=== PATIENT | female | born 1970 | race Two or more races ===

== ENCOUNTER 2024-07-12 08:13 | Inpatient (IN) | payer BC ==
[~2024-07-12] VITALS: Ht 167.6 cm; Wt 100.0 kg
[~2024-07-12 08:13] MED LIST: ATEN50TA PO; FENO145T27 OR; HYDR25TA4 PO; LEVO25TA6 PO; MELO15TA29 PO; TIRZ5INJ2 SC; VENL37.588 PO
[2024-07-12] MEDS ORDERED: MEPERIDINE HCL (25 MG/ML) 1ML VIAL ONE (08:44)
[2024-07-12] MEDS ORDERED: NEOSTIGMINE 1 MG/ML INJ (10mg/10ML VIAL) ONE (08:44)
[2024-07-12] MEDS ORDERED: ONDANSETRON HCL 4 MG/2 ML VIAL ONE (08:44)
[2024-07-12] MEDS ORDERED: PROPOFOL 10 MG/ML 20 ML IV ONE ×2 (08:44→12:37)
[2024-07-12] MEDS ORDERED: fentaNYL CITRATE 5 ML ONE (08:44)
[2024-07-12] MEDS ORDERED: KETAMINE 50mg/ML 1ml syringe ONE (08:44)
[2024-07-12] MEDS ORDERED: MIDAZOLAM HCL 2MG/2ML 2ml VIAL (1mg/ml) ONE (08:44)
[2024-07-12] MEDS ORDERED: LIDOCAINE 1% INJ PF 5ML AMP ONE (08:44)
[2024-07-12] MEDS ORDERED: GLYCOPYRROLATE 0.2 MG/ML 1ML VIAL ONE (08:44)
[2024-07-12] MEDS ORDERED: SODIUM CHLORIDE LOCK 50 ML ONE (08:44)
[2024-07-12] MEDS ORDERED: LIDOCAINE 2% TOPICAL JELLY 5 ML URJT TOP ONE (08:44)
[2024-07-12] MEDS ORDERED: ROCURONIUM 10MG/ML 10ML VIAL IV ONE (08:44)
[2024-07-12] MEDS ORDERED: DexAMETHasone SOD PHOS 10MG/1ML VIAL INJ ONE (08:44)
[2024-07-12] MEDS ORDERED: fentaNYL CITRATE 100 MCG/2 ML VL ONE (08:44)
[2024-07-12] MEDS ORDERED: ceFAZolin 2 GM/D5W100ml 100 ML IV ONE (08:45)
--- NOTE | 2024-07-12 10:55 | DVHHP2 ---
"Admitting Diagnosis: lumbar spinal stenosis with severe neurogenic claudication History of Present Illness Home Meds Reported Medications Tirzepatide (Zepbound) 5 Mg/0.5 Ml Inj, 5 MG SC QWEEKLY, INJ 07/08/24 Meloxicam (Meloxicam) 15 Mg Tab, 15 MG PO, TAB 07/08/24 Hydrochlorothiazide (Hydrochlorothiazide) 25 Mg Tab, 25 MG PO DAILY for 30 Days, MG 07/08/24 Fenofibrate (FENOFIBRATE) 145 Mg Tab, 145 MG OR DAILY, TAB 07/08/24 Venlafaxine Hcl (Venlafaxine Hcl Er) 37.5 Mg Cap, 37.5 MG PO QPM, CAP 07/08/24 Atenolol (Atenolol) 50 Mg Tab, 50 MG PO DAILY for 30 Days, MG 07/08/24 Levothyroxine Sodium (Levothyroxine Sodium) 25 Mcg Tab, 25 MCG PO QAM, MCG 07/08/24 Timing/Duration of Back Pain: Getting worse Quality of Back Pain: Aching, Burning Back Pain Location: Lumbar spine Back Pain Radiation: Buttocks, Thigh area, Lower legs Method of Injury/Prior Factors: Unknown Review of Systems Constitutional: No symptom reported Ears, Nose, & Throat: No symptom reported Eyes: No symptom reported Pulmonary/Respiratory: No symptom reported Cardiovascular: No symptom reported Gastrointestinal: No symptom reported Genitourinary: No symptom reported Musculoskeletal: Back pain, Leg pain, Muscle stiffness, Muscle atrophy Skin: No symptom reported Psychiatric: No symptom reported Endocrine: No symptom reported Hemotologic/Lymphatic: No symptom reported H&P Exam Vital Signs Vital Signs Date Time Temp Pulse Resp B/P (MAP) Pulse Ox O2 Delivery O2 Flow Rate FiO2 07/12/24 08:20 97.2 58 16 124/77 (93) 98 97.2 General Appeara: Well developed, Well nourished, Normal Appearance Head Exam: Normal inspection Neck Exam: Normal inspection, Non-tender, Normal alignment Eye Exam: bilateral eye Normal inspection, bilateral eye PERRL, bilateral eye EOMI Ear Exam: bilateral ear Auricle normal, bilateral ear Canal normal, bilateral ear TM normal Nasal Exam: Normal inspection Mouth: Normal Inspection Pulmonary/Respiratory: Normal inspection, Normal breath sounds, Chest non- tender, Lungs clear Cardiovascular/Chest: Normal inspection, Regular rate, Normal Rhythm Abdominal Exam: Normal bowel sounds, Soft, No tenderness, No hepatospenomegaly, No masses Rectal Exam: Deferred Back Exam: Decreased range of motion, Muscle spasm, Vertebral tenderness Pelvic Exam: Not done Male Genital Exam: Not done Shoulder Exam: Normal inspection, Non-tender, Normal ROM Elbow/Forearm Exam: Normal inspection, Non-tender, Normal ROM Wrist Exam: Normal inspection, Non-tender, Normal ROM Hand Exam: Normal inspection, Non-tender, Normal ROM Hip exam: Normal inspection, Non-tender, Normal range of motion Legs: bilateral leg non-tender, bilateral leg normal inspection, bilateral leg normal range of motion, bilateral leg no evidence of injury Knees: bilateral knee non-tender, bilateral knee normal inspection, bilateral knee normal range of motion, bilateral knee no evidence of injury Ankle Exam: bilateral ankle Normal inspection, bilateral ankle Non-tender, bilateral ankle Normal range of motion, bilateral ankle No evidence of injury Foot: bilateral foot non-tender, bilateral foot normal inspection, bilateral foot normal range of motion, bilateral foot no evidence of injury Motor/Sensory: Sensory deficit, Weak motor strength RLE, Weak motor strength LLE Deep Tendon Ref: All intact Neuro/Mental St: Alert, Oriented Appearance: Appropriate appearance, Appropriate insight Eye contact/ Speech: Cooperative, Good eye contact, Normal speech Skin Exam: Normal inspection, Normal color, Warm/dry Lymphatic: Normal inspection Labs/Xrays Radiology Report Patient Details Exam Details RENNY PALOMO MR LUMBAR SPINE WO Date of Gender Exam Date FEMALE 03/[birth year]2024 [id number] [facility] Rec # Ordering Provider Interpreting Provider [id number] ASHLEY ANDERSON SKYLER PROCEDURE: MR LUMBAR SPINE WO INDICATION: Pain Exam Date: 03/29/2024 04:34 PM COMPARISON: None TECHNIQUE: MRI lumbar spine without intravenous contrast. FINDINGS: There is Grade 1 anterolisthesis of L4 on L5. There are degenerative endplate changes including modic endplate changes with anterior and lateral osteophytes throughout the lumbar spine. The vertebral body heights and marrow signal are within normal limits. The visualized distal spinal cord and conus medullaris are within normal limits. The conus medullaris appears to terminate within normal limits. The visualized retroperitoneal and paraspinal soft tissues are unremarkable. The following axial levels are detailed below: T12-L1: Unremarkable. L1-L2: Unremarkable. L2-L3: There is a mild circumferential disc bulge. No significant central canal or neuroforaminal stenosis. L3-L4: There is a mild circumferential disc bulge. No significant central canal or neuroforaminal stenosis. L4-L5: There is Grade 1 anterolisthesis of L4 and L5 with uncovering of disc complicated by facet arthropathy narrowing the central canal to 3mm with impression on the cauda equina. No significant neuroforaminal stenosis. L5-S1: There is a mild circumferential disc bulge. No significant central canal or neuroforaminal stenosis. IMPRESSION: [facility] [id number], [address] [place] [address] | Confidential information intended for patient chart only Page 2 of 2 1. Multilevel degenerative disease. Grade 1 anterolisthesis of L4 and L5 contributes to severe central canal stenosis. Multi level neuroforaminal stenosis as above. HS:Y Assessment/Plan Primary Diagnosis lumbar spinals stenosis with severe neurogenic claudication/segmental instability Plan admit for elective lumbar spinal stenosis Plan discussed with: Patient DANA KLEIN MD Jul 12, 2024 10:55"
[2024-07-12] MEDS ORDERED: CIPROFLOXACIN 400MG/200ML 400 ML IV ONE (11:04)
[2024-07-12] MEDS ORDERED: TRANEXAMIC ACID 20 ML ONE (11:05)
[2024-07-12] MEDS ORDERED: METOCLOPRAMIDE HCL 5MG/ml INJ 2ml VIAL IV ONE (11:15)
[2024-07-12] MEDS ORDERED: MORPHINE SULFATE 4 MG/ML SYR/VIAL IV PRN (11:15)
[2024-07-12] MEDS ORDERED: MORPHINE SULFATE INJ 2 MG/ml SYRG IV PRN ×2 (11:15→15:15)
[2024-07-12] MEDS ORDERED: HYDROmorphone HCL 2 MG/ML VL/or syr IV PRN (11:15)
[2024-07-12] MEDS ORDERED: KETOROLAC TROMETH 30 MG/ML 1ML VIAL IV ONE (11:15)
[2024-07-12] MEDS ORDERED: PROPOFOL 400 ML IV ONE (13:36)
[2024-07-12 14:55] VITALS: RESP 11; O2SAT 93
--- NOTE | 2024-07-12 15:14 | DVHOP2 ---
Operative Report - 2 Report Details Date: 07/12/24 Preop Diagnosis: lumbar spinal stenosis with neurogenic claudication /segmental instability Postop Diagnosis: lumbar spinal stenosis with neurogenic claudication / segmental instability Surgeon: George Pool MD Industrial Eng: Dee Pemberton NP Anesthesiologist: juan Anesthesia: General Consent: The patient was informed of the risks and benefits of the procedure. These include but are not limited to complications of anesthesia, postoperative infection, incomplete relief of symptoms, recurrence of symptoms, damage to blood vessels, nerves and tendons, deep venous thrombosis, pulmonary embolism and possible need for repeat surgery in the future. Name of Procedure Performed see detailed note Procedure Details Procedure Details: Pre-op Diagnosis: Lumbar Degenerative Disk Disease and Lumbar Spinal Stenosis causing Incapacitating back pain, radiculopathy and progressive neurologic deficit Post-op Diagnosis: Lumbar Degenerative Disk Disease and Lumbar Spinal Stenosis causing Incapacitating back pain, radiculopathy and progressive neurologic deficit Procedure: Lumbar 5 laminectomy with Lumbar 5 foraminotomies and facetectomies to decompress central canal and Lumbar 5 nerve roots Lumbar 4 laminectomy with Lumbar 4 foraminotomies and facetectomies to decompress central canal and Lumbar 4 nerve roots Lumbar 4 to 5 posterior spinal interbody fusion with PEEK cage / bone graft Lumbar 4 to 5 posterior spinal instrumentation with pedicle screws Local Bone Autograft For Fusion Allograft Bone Substitute (Bacterin) to augment Fusion Use of Demineralized Bone Matrix to Augment Fusion Microscope For Microdissection Surgeon: George Pool MD Assist: TALON Gutierrez Anesthesia: General Fluids and EBL: See anesthesia note Patient was seen in the Pre Anesthesia Care Unit (PACU) and the operative site was initialed by me. All questions were answered to the patients satisfaction and chart reviewed. The patient was taken to the operative room where pre-opera tive antibiotics were given 30 minutes prior to incision. General anesthesia was induced and neuro-monitoring leads placed. Luevano catheter was placed. The patient was turned prone onto the [facility] spinal table. While positioning, I made sure that the belly was free to allow proper expansion of the lungs. The hips were extended and all bony prominences padded. The shoulders were abducted 80 degree and the elbows flexed 100 degrees with no tension on the brachial plexus. I check the foot arterial pulses and they were palpable. The patient was prepped and draped and time out was taken at this time per usual protocol. At this time, the C-arm fluoroscope was brought in and was used to [place] the incision borders proximally and distally. Using a Number 10 Blade, an incision was made extending it proximally and distally per C arm [place] from the posterior spinous process of lumbar 4,5 down to the lumbo-dorsal fascia. All bleeding was controlled with electrocautery. Self-retaining retractors were placed. Electrocautery was then used to take down the lumbo-dorsal fascia, to free the muscle off the bone bilaterally. A Adam retractor was placed over the posterior spinous process proximally and a lateral C-arm fluoroscope image was taken to insure we were at the correct level. Next, using bovie electro cautery, The deep fascia laterally to the facet joints was removed to expose the transverse processes of lumbar 4 and 5 while taking care to avoid injuring the facet capsule at the proximal end of the incision. Next, the microscope was bought in for visualization and using a Luxell rongeur, the posterior spinous process of lumbar 4 and 5 bone were removed and the bone was saved for use as local autograft. I used alternating Kerison 2 mm and 3 mm rongeurs to perform central laminectomies lumbar 5 and 4 to decompress the central canal. Next using alternating Kerison 2mm and 3 mm rongeurs, the superior articular facets of lumbar 4 and 5 were removed bilaterally to decompress the lateral recess (facetectomies) and then extended proximally to decompress the foramen bilaterally (foraminotomies). I used a ball tipped nerve probed to insure that the respective nerve roots were able to be mobilized 5mm in each direction were unimpeded in the lateral recess and foramen. Next I carefully inspected the dura to make sure no durotomy was visible and it was not. Next I retracted the lumbar 5 nerve root on the right side medially and used increased size lexus to prepare the disk space. Further preparation was done the curved curettes and a pituitary ronegour to remove loose tissue to get down to a clean bed of bleeding bone. Next I used trials until the proper size and tension achieved and placed a PEEK inter body device with bone graft placed in it into the L4/5 disc space. size of graft was 9X28mm I covered the exposed dura with gelfoam soaked in thrombin and the microscope was wheeled away from the operative filed. The C-arm fluoroscope was brought in and perfect AP views of the lumbar 4 and 5 pedicles were obtained. I placed bilateral pedicle screws at these levels by: using a Lenke awl to make a airplane pilot photogrammetry hole, then a ball tip robe to make sure there was no pedicle breach, then a tap to prepare the track and a 6.5 mm diameter 45 mm length pedicle screw was placed bilaterally. This step to place bilateral pedicle screws was repeated up to the lumbar 4 and 5 level. Next, the c-arm fluoroscope took an AP and lateral x-ray to ensure proper placement of the pedicle screws. Next, the neuro-stimulation probe was placed over the tip of each screw and each screw stimulated only after a current greater than 10 mA was delivered to the screw. Next , I took a Midas Omar Drill to decorticate the transverse process which were exposed and local bone graft, Bacterin allograft bone substitute and Demineralized bone matrix were placed along the inter transverse process intervals bilaterally (the fusion bed). Next a curved carolyn sized to fit the pedicle screw interval was placed and secured to each pedicle screw using set screws, The set screws were tightened using a torque screwdriver (set to 10 N*M torque) to secure the carolyn to the pedicle screws bilaterally. Final AP and lateral C arm fluoroscopic films were taken at this time. Next a 10 Hebrew diameter Hemovac drain was laced deep to the lumbo- dorsal fascia. The lumbo-dorsal fascia was closed with interrupted 0-Vicry sutures. The subcutaneous tissue was closed with interrupted 2-0 Vicryl sutures. The skin was closed with running 2-0 nylon suture. Sterile dressings were place. The pt. was turned supine onto the stretcher, extubated and taken to the recovery room in stable condition. ONCE PATIENT REACHED THE PACU, external bone stimulator applied along with TLSO Brace Condition Stable Disposition Still a Patient GEORGE POOL MD Jul 12, 2024 15:14
[2024-07-12] MEDS ORDERED: NITROGLYCERIN 0.4 MG SL TAB SL PRN (15:15)
[2024-07-12] MEDS ORDERED: ONDANSETRON HCL 4 MG/2 ML VIAL IV PRN (15:15)
[2024-07-12] MEDS ORDERED: THROAT LOZENGES(CEPASTAT) MT PRN (15:15)
[2024-07-12] MEDS: D5W/SOD CHLO 0.9% 1,000 ML IV SCH (15:15)
[2024-07-12] MEDS ORDERED: HYDROcodone-ACET 10/325MG TAB PO PRN (15:15)
--- NOTE | 2024-07-12 15:21 | POSTOP ---
Post-Operative Note Post-Operative Note Preop Diagnosis Lumbar stenosis Postop Diagnosis: Lumbar Degenerative Disk Disease and Lumbar Spinal Stenosis causing Incapacitating back pain, radiculopathy and progressive neurologic deficit Operation performed Procedure: Lumbar 5 laminectomy with Lumbar 5 foraminotomies and facetectomies to decompress central canal and Lumbar 5 nerve roots Lumbar 4 laminectomy with Lumbar 4 foraminotomies and facetectomies to decompress central canal and Lumbar 4 nerve roots Lumbar 4 to 5 posterior spinal interbody fusion with PEEK cage / bone graft Lumbar 4 to 5 posterior spinal instrumentation with pedicle screws Specimen None Anesthesia: General Anesthesiologist: Dr. Keith Blood Loss(fluid mgmt) 500 mL Tourniquet Time None Surgeon Dr George Pool Animal Biologist Dee Hernandez [employer] Implant 6.5 x 45 x 4 screws 50 mm rods x2 Set screws x4 9 mm interbody x1 Complications & Mgmt None Additional Remarks POD # immediate postop note Dx: Lumbar stenosis -Disposition: -Pending -Discharge RX: Pending -Follow [place]: [place] [id number] [place], [place] [id number] -Pain: - IV pain meds post op day 1, with PO supplementation, goal is to progress weaning off IV medications and control pain with PO only. morphine 2mg q 4 hours (PAIN 7-10) - P.O. analgesics:Tylenol 650MG (PAIN 1-3) Midway 10/325 mg (PAIN 4-6) q4hr - Muscle relaxers scheduled administration. This is a beneficial medications for the incisional pain as it is mostly related to muscle spasms. Flexeril 10 mg TID - Cepacol throat lozenges as needed for sore throat -Antibiotics Operative recommendations: -Postoperative dose:-Post operative antibiotics cefazolin 1 g IV piggyback every 8 hours x 48 hours total of 6 doses -DVT PPX: -Hold all chemical DVT/ blood thinners for 14 days postoperatively -use mechanical DVT PPX such as SCD's, ambulation -Activity: -Pending PT evaluation and patients progression -Sit at side of bed for meals -Goal: Ambulate independently and safely (may use assistive devices if needed) -Medical Therapy goals: -Afebrile- Patient may develop a expected post operative fever by day 2-3, this may not be accompanied with a elevation in WBC. if fever develops: Acetaminophen for fever. Albuterol nebulizer Tx every 12 hours for 24 hours to facilitate adequate lung expansion and prevent development of atelectasis. -Euglycemic: bloods sugars under 130mmol/L for optimal healing -Normotensive: Avoid events of hypertension. This helps to keep post operative healing intact and avoids destabilization of beneficial hemostatic coagulation. -Lumbar: -If patient is comfortable encouraged the patient to lay on their side to facilitate wound healing -Drains: -Hemovac drains: These will be to full compression unless otherwise ordered. please record and document output AND characteristic of fluid present independently at least every 6 hours, more often as needed. If output is greater than 100 ml in one hour of markel blood call provider. These drains will be removed once the drainage is at a acceptable level (generally less than 100ml in 24 hours) -Pradeep dressing: This will stay in place and will be removed at the patients f ollow up visit. Nursing is to assess the seal and power source. The seal should be intact and the power source should have a green flashing light indicating it is functioning well. Batteries can last up to 14 days. If a leak develops the dressing edges can be reinforced with a Tegaderm dressing to reestablish intact seal. The Pradeep dressing is NOT a wound vac. This does not get changed, it does not need home health management. -Record output independently, drain 1. Is a deep drain and drain 2. Is a superficial drain. EVERY 6 HOURS- DOCUMENT FINDING IN CHART. If there is no output indicate this by putting 0 ml output Wound drainage is described by type, color, amount, and odor. Drainage can be 1 Serous: Clear and thin, may be present in healing healthy wound. 2 Serosanguineous containing blood may also be present and healthy healing wound 3. Sanguinous primarily blood 4. Purulent this is thick, white, and pus like. It may be indicated to give of a infection and should constitute a call to the provider immediately with the plan that the sample should be cultured. -Luevano: discontinued in OR -Dressings Take care not to disrupt the PRADEEP dressing seal. If there is a break in the seal it can be trouble shot with a Tegaderm dressing. -Dressing to Hemovac drains may be changed once the drains have been removed by the provider. -Bowel management: -Colace 100mg bid -Diet: -Clear liquid diet and advance as patient tolerates within dietary limitations ( example: diabetic, Cardiac) -Incentive Spirometer: -10 x hour while awake, RN please educate and observe repeat demonstration, have IS at bedside POD #1 -X-rays: - none indicated at this time -Consults: -Physical Therapy evaluation, treatment recommendations, and discharge recomm endations Call with questions Darshan Hernandez ACNP- Orthopaedic Spine Surgery nurse practitioner For Dr Lexi Pool Patient was examined, chart reviewed, labs evaluated, and diagnostic studies and findings analyzed. Case was discussed with Dr. George Pool who formulated the plan of care. This medical document was created using an electronic medical record system with [employer] computerized dictation system. Although this document has been carefully reviewed, there might still be some phonetic and typographical errors. These areas are purely typographical due to imperfections of the software programs, and do not reflect any compromise in the patient's medical care. Date 07/12/24 Time 15:10 DEE HERNANDEZ NP Jul 12, 2024 15:21
[2024-07-12] MEDS: HYDROcodone-ACET 10/325MG TAB PO PRN (15:27)
[2024-07-12] MEDS ORDERED: ACETAMINOPHEN IV 100 ML IV ONE (15:31)
[2024-07-12] MEDS: ACETAMINOPHEN IV 1000 MG/100ML (10MG/ML) IV PRN (15:32)
[2024-07-12] MEDS ORDERED: HYDROmorphone HCL 2 MG/ML VL/or syr ONE (15:42)
[2024-07-12] MEDS: HYDROmorphone HCL 2 MG/ML VL/or syr IV PRN (15:46)
[2024-07-12 16:34] VITALS: BP 99/65; PULSE 64; RESP 18; TEMP 97.4; O2SAT 94
[2024-07-12 16:35] VITALS: BP 99/65; PULSE 64; RESP 18; TEMP 97.4; O2SAT 94
--- NOTE | 2024-07-12 19:09 | DVH ---
C-ARM FLUOROSCOPY: PROCEDURE: l4-l5 spinal decomrpession and fusion FLUOROSCOPY TIME: 69 sec DAP: 51 mgy FINDINGS: Spot intraoperative C arm radiographs demonstrating spinal deocmpression . IMPRESSION: Please refer to surgical report for detailed findings.
--- NOTE | 2024-07-12 19:10 | DVH ---
C-ARM FLUOROSCOPY: PROCEDURE: L4-L5 spinal decompression Refer to operative with lower IMPRESSION: Please refer to surgical report for detailed findings.
[2024-07-12 20:00] VITALS: PULSE 74; RESP 17; O2SAT 95
[2024-07-12 21:00] VITALS: BP 113/53; PULSE 74; RESP 17; TEMP 97.6; O2SAT 95
[2024-07-12] MEDS: CYCLOBENZAPRINE HCL 10 MG TAB PO SCH (21:54)
[2024-07-12] MEDS: DOCUSATE SOD 100 MG CAP PO SCH (21:54)
[2024-07-12] MEDS: ceFAZolin 1GM/50ML 50 ML IV SCH (21:58)
[2024-07-12 22:15] VITALS: PULSE 66; O2SAT 98
[2024-07-13] VITALS (12 sets, daily range): BP systolic 88–118; BP diastolic 44–71; PULSE 63–78; RESP 17–22; TEMP 97.6–98.8; O2SAT 95–98
[2024-07-13] MEDS: ACETAMINOPHEN 325 MG TAB PO PRN (00:37)
[2024-07-13] MEDS: SODIUM CHLORIDE 0.9% 1,000 ML IV ONE (11:00)
--- NOTE | 2024-07-13 13:43 | DVHPN2 ---
Progress Note - Surgical Date Seen: Jul 13, 2024 Post op day Post op day: 1 Subjective Review of Systems: HEENT:Normal, CVS:Normal, RESPIRATORY:Normal, GI:Normal, :Normal, MSK:Normal, NEURO:Normal Objective Vital signs Vital Sign Date Time Temp Pulse Resp B/P (MAP) Pulse Ox O2 Delivery O2 Flow Rate FiO2 07/13/24 10:09 88/44 (59) 07/13/24 09:00 97.6 63 17 97 97.6 07/13/24 08:52 2.0 28 07/13/24 08:00 Room Air* Nasal Cannula* Bi-Pap+ Total Intake and Output 07/12/24 07/12/24 07/13/24 15:00 23:00 07:00 Intake Total 1100 ml 50 ml 850 ml Output Total 0 ml 0 ml 950 ml Balance 1100 ml 50 ml -100 ml Medications Current Medications Medications Dose Ordered Sig/Ozzy Route Start Time Stop Time Status Last Admin Dose Admin Dextrose/Sodium Chloride 1,000 ml @ 100 mls/hr Q10H IV 07/12/24 15:15 07/13/24 01:36 100 MLS/HR Ondansetron HCl 4 mg Q4HP PRN IV 07/12/24 15:15 Acetaminophen 650 mg Q6HP PRN PO 07/12/24 15:15 07/13/24 00:37 650 MG Cyclobenzaprine HCl 10 mg TID PO 07/12/24 22:00 07/13/24 06:18 10 MG Docusate Sodium 100 mg BID PO 07/12/24 22:00 07/12/24 21:54 100 MG Cefazolin Sodium 50 ml @ 100 mls/hr Q8HR IV 07/12/24 22:00 07/14/24 14:29 07/13/24 06:18 100 MLS/HR Nitroglycerin 0.4 mg Q5MINP PRN SL 07/12/24 15:15 Morphine Sulfate 2 mg Q30M PRN IV 07/12/24 15:15 Throat Lozenges 1 piter Q2HP PRN MT 07/12/24 15:15 Acetaminophen/ Hydrocodone Bitart 1 tab Q4HPRN PRN PO 07/12/24 15:30 07/13/24 11:02 1 TAB Morphine Sulfate 2 mg Q4HP PRN IV 07/12/24 15:17 Examination: GENERAL:Normal, HEENT:Normal, NECK:Normal, LUNGS:Normal, CVS:Normal, ABDOMEN:Normal, MSK:Normal, SKIN:Normal (Pradeep dressing in place drains in place x2 no documented output from overnight cashier. 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 morphine 2mg q 4 hours (PAIN 7-10) - P.O. analgesics:Tylenol 650MG (PAIN 1-3) [place] 10/325 mg (PAIN 4-6) q4hr - Muscle relaxers scheduled administration. This is a beneficial medications for the incisional pain as it is mostly related to muscle spasms. Flexeril 10 mg TID - Cepacol throat lozenges as needed for sore throat -Antibiotics Operative recommendations: -Postoperative dose:-Post operative antibiotics cefazolin 1 g IV piggyback every 8 hours x 48 hours total of 6 doses -DVT PPX: -Hold all chemical DVT/ blood thinners for 14 days postoperatively -use mechanical DVT PPX such as SCD's, ambulation -Activity: -Pending PT evaluation and patients progression -Sit at side of bed for meals -Goal: Ambulate independently and safely (may use assistive devices if needed) -Medical Therapy goals: -Afebrile- Patient may develop a expected post operative fever by day 2-3, this may not be accompanied with a elevation in WBC. if fever develops: Acetaminophen for fever. Albuterol nebulizer Tx every 12 hours for 24 hours to facilitate adequate lung expansion and prevent development of atelectasis. -Euglycemic: bloods sugars under 130mmol/L for optimal healing -Normotensive: Avoid events of hypertension. This helps to keep post operative healing intact and avoids destabilization of beneficial hemostatic coagulation. -Lumbar: -If patient is comfortable encouraged the patient to lay on their side to facilitate wound healing -Drains: -Hemovac drains: These will be to full compression unless otherwise ordered. please record and document output AND characteristic of fluid present independently at least every 6 hours, more often as needed. If output is greater than 100 ml in one hour of markel blood call provider. These drains will be removed once the drainage is at a acceptable level (generally less than 100ml in 24 hours) -Pradeep dressing: This will stay in place and will be removed at the patients follow up visit. Nursing is to assess the seal and power source. The seal should be intact and the power source should have a green flashing light indicating it is functioning well. Batteries can last up to 14 days. If a leak develops the dressing edges can be reinforced with a Tegaderm dressing to reestablish intact seal. The Pradeep dressing is NOT a wound vac. This does not get changed, it does not need home health management. -Record output independently, drain 1. Is a deep drain and drain 2. Is a superficial drain. EVERY 6 HOURS- DOCUMENT FINDING IN CHART. If there is no output indicate this by putting 0 ml output Wound drainage is described by type, color, amount, and odor. Drainage can be 1 Serous: Clear and thin, may be present in healing healthy wound. 2 Serosanguineous containing blood may also be present and healthy healing wound 3. Sanguinous primarily blood 4. Purulent this is thick, white, and pus like. It may be indicated to give of a infection and should constitute a call to the provider immediately with the plan that the sample should be cultured. -Luevano: discontinued in OR -Dressings Take care not to disrupt the PRADEEP dressing seal. If there is a break in the seal it can be trouble shot with a Tegaderm dressing. -Dressing to Hemovac drains may be changed once the drains have been removed by the provider. -Bowel management: -Colace 100mg bid -Diet: -Clear liquid diet and advance as patient tolerates within dietary limitations ( example: diabetic, Cardiac) -Incentive Spirometer: -10 x hour while awake, RN please educate and observe repeat demonstration, have IS at bedside POD #1 -X-rays: - none indicated at this time -Consults: -Physical Therapy evaluation, treatment recommendations, and discharge recommendations Call with questions Darshan Hernandez ACNP- Orthopaedic Spine Surgery nurse practitioner For Dr Lexi Pool Patient was examined, chart reviewed, labs evaluated, and diagnostic studies and findings analyzed. Case was discussed with Dr. George Pool who formulated the plan of care. This medical document was created using an electronic medical record system with [employer] dictation system. Although this document has been carefully reviewed, there might still be some phonetic and typographical errors. These areas are purely typographical due to imperfections of the software programs, and do not reflect any compromise in the patient's medical care. My Orders My Orders Orders - INDIRA HERNANDEZ NP Procedure Category Date Status Time Drain Assessment KRISTI 07/12/24 In Process 15:17 Drain To Suction KRISTI 07/12/24 In Process 15:17 Is At Bedside. KRISTI 07/12/24 In Process 15:13 Throat Lozenges PHA 07/12/24 In Process (Cepastat Lozenges) 15:15 Hydrocodone-Acet PHA 07/12/24 In Process 10/325mg Tab ([place] 15:30 Morphine Sulfate PHA 07/12/24 In Process Injection 15:17 Communication Order ORDERS 07/12/24 Transmitted 15:17 Plan discussed with Plan discussed with: Patient, Other (Adeel RN) Visit Coding Surgery Date of Service if different f: Jul 13, 2024 Billing Provider: INDIRA HERNANDEZ NP Surgery Visit Codes: NOT BILLABLE INDIRA HERNANDEZ NP Jul 13, 2024 13:43
[2024-07-13] MEDS: MORPHINE SULFATE INJ 2 MG/ml SYRG IV PRN (14:07)
--- NOTE | 2024-07-13 16:42 | DVHINCON2 ---
Date Seen: Jul 13, 2024 Referring Physician Spine surgery. Reason for Consultation Medical management. History of Present Illness 54-year-old female with a known history of chronic low back pain for years, hypertension, dyslipidemia, hypothyroidism who was brought in by spine surgery for elective surgery for lumbar radiculopathy status post L4-5 lumbar spine surgery. Patient is currently still complaining of 7/10 back pain. Patient's blood pressure is is running low although asymptomatic. Patient denies any headaches lightheadedness dizziness near-syncope or syncope. Past Medical History Hypertension Dyslipidemia Hypothyroidism Chronic back pain Past Surgical History Lumbar radiculopathy status post L4-5 lumbar spine surgery Allergies: Coded Allergies: NO KNOWN ALLERGIES (Unverified , 07/08/24) Home Meds Reported Medications Tirzepatide (Zepbound) 5 Mg/0.5 Ml Inj, 5 MG SC QWEEKLY, INJ 07/08/24 Meloxicam (Meloxicam) 15 Mg Tab, 15 MG PO, TAB 07/08/24 Hydrochlorothiazide (Hydrochlorothiazide) 25 Mg Tab, 25 MG PO DAILY for 30 Days, MG 07/08/24 Fenofibrate (FENOFIBRATE) 145 Mg Tab, 145 MG OR DAILY, TAB 07/08/24 Venlafaxine Hcl (Venlafaxine Hcl Er) 37.5 Mg Cap, 37.5 MG PO QPM, CAP 07/08/24 Atenolol (Atenolol) 50 Mg Tab, 50 MG PO DAILY for 30 Days, MG 07/08/24 Levothyroxine Sodium (Levothyroxine Sodium) 25 Mcg Tab, 25 MCG PO QAM, MCG 07/08/24 Current Medications Current Medications Medications (Trade) Dose Ordered Sig/Ozzy Route PRN Reason Start Time Stop Time Status Last Admin Cyclobenzaprine HCl (Flexeril Tablet) 10 mg TID PO 07/12/24 22:00 07/13/24 14:09 Docusate Sodium (Colace Capsule) 100 mg BID PO 07/12/24 22:00 07/12/24 21:54 Cefazolin Sodium 50 ml @ 100 mls/hr Q8HR IV 07/12/24 22:00 07/14/24 14:29 07/13/24 14:09 Review of Systems 12 review of system are negative besides mentioned above. 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 1. Relative hypotension with a history of hypertension, hold beta elliot for now 2. Dyslipidemia 3. Hypothyroidism 4. Lumbar radiculopathy status post L4-5 lumbar fusion surgery -continue IV fluids, hold beta elliot for now as patient's systolic blood pressures around 80s to 90s. -physical therapy evaluation and treatment, discharge plan per spine surgery. Plan discussed with: Patient, Daughter Date of Service: Jul 13, 2024 Billing Provider: ADRIAN DANIEL MD Common Visit Codes: NOT BILLABLE ADRIAN DANIEL MD Jul 13, 2024 16:42
[2024-07-14] VITALS (8 sets, daily range): BP systolic 114–136; BP diastolic 68–86; PULSE 74–105; RESP 17–20; TEMP 98–99.5; O2SAT 94–98
[2024-07-14] MEDS: MORPHINE SULFATE INJ 2 MG/ml SYRG IV PRN (10:47)
--- NOTE | 2024-07-14 12:05 | DVHPN2 ---
Progress Note - Surgical Date Seen: Jul 14, 2024 Post op day Post op day: 2 Subjective Patient reports: No new complaints, Feels better Review of Systems: HEENT:Normal, CVS:Normal, RESPIRATORY:Normal, GI:Normal, :Normal, MSK:Normal, NEURO:Normal Objective Vital signs Vital Sign Date Time Temp Pulse Resp B/P (MAP) Pulse Ox O2 Delivery O2 Flow Rate FiO2 07/14/24 10:47 97 19 136/65 07/14/24 08:05 Room Air* 0 N/A Nasal Cannula* Bi-Pap+ 07/14/24 08:00 99.2 94 99.2 Total Intake and Output 07/13/24 07/13/24 07/14/24 15:00 23:00 07:00 Intake Total 1050 ml 1450 ml 250 ml Output Total 215 ml 480 ml Balance 1050 ml 1235 ml -230 ml Medications Current Medications Medications Dose Ordered Sig/Ozzy Route Start Time Stop Time Status Last Admin Dose Admin Ondansetron HCl 4 mg Q4HP PRN IV 07/12/24 15:15 Acetaminophen 650 mg Q6HP PRN PO 07/12/24 15:15 07/13/24 00:37 650 MG Cyclobenzaprine HCl 10 mg TID PO 07/12/24 22:00 07/14/24 06:11 10 MG Docusate Sodium 100 mg BID PO 07/12/24 22:00 07/14/24 10:42 100 MG Cefazolin Sodium 50 ml @ 100 mls/hr Q8HR IV 07/12/24 22:00 07/14/24 14:29 07/14/24 06:11 100 MLS/HR Nitroglycerin 0.4 mg Q5MINP PRN SL 07/12/24 15:15 Morphine Sulfate 2 mg Q30M PRN IV 07/12/24 15:15 07/14/24 10:47 2 MG Throat Lozenges 1 piter Q2HP PRN MT 07/12/24 15:15 Acetaminophen/ Hydrocodone Bitart 1 tab Q4HPRN PRN PO 07/12/24 15:30 07/13/24 20:43 1 TAB Morphine Sulfate 2 mg Q4HP PRN IV 07/12/24 15:17 07/14/24 01:01 2 MG Examination: GENERAL:Normal, HEENT:Normal, NECK:Normal, LUNGS:Normal, CVS:Normal, ABDOMEN:Normal, MSK:Normal, SKIN:Normal (#1 Deep collected 50 cc of serosanguineous), NEURO:Normal, :Normal Problem List/Assessment/Plan Problems: (1) Muscle spasm of back (2) 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 will keep another day Patient able o ambulate out in the hallway today, pain well controlled. Dx: Lumbar stenosis -Disposition: -Pending -Discharge RX: Pending -Follow up appointment: [place] [id number] [facility] [address] Muñiz [address] [place] [id number] -Pain: - IV pain meds post op day 1, with PO supplementation, goal is to progress weaning off IV medications and control pain with PO only. morphine 2mg q 4 hours (PAIN 7-10) - P.O. analgesics:Tylenol 650MG (PAIN 1-3) [place] 10/325 mg (PAIN 4-6) q4hr - Muscle relaxers scheduled administration. This is a beneficial medications for the incisional pain as it is mostly related to muscle spasms. Flexeril 10 mg TID - Cepacol throat lozenges as needed for sore throat -Antibiotics Operative recommendations: -Postoperative dose:-Post operative antibiotics cefazolin 1 g IV piggyback every 8 hours x 48 hours total of 6 doses -DVT PPX: -Hold all chemical DVT/ blood thinners for 14 days postoperatively -use mechanical DVT PPX such as SCD's, ambulation -Activity: -Pending PT evaluation and patients progression -Sit at side of bed for meals -Goal: Ambulate independently and safely (may use assistive devices if needed) -Medical Therapy goals: -Afebrile- Patient may develop a expected post operative fever by day 2-3, this may not be accompanied with a elevation in WBC. if fever develops: Acetaminophen for fever. Albuterol nebulizer Tx every 12 hours for 24 hours to facilitate adequate lung expansion and prevent development of atelectasis. -Euglycemic: bloods sugars under 130mmol/L for optimal healing -Normotensive: Avoid events of hypertension. This helps to keep post operative healing intact and avoids destabilization of beneficial hemostatic coagulation. -Lumbar: -If patient is comfortable encouraged the patient to lay on their side to facilitate wound healing -Drains: -Hemovac drains: These will be to full compression unless otherwise ordered. please record and document output AND characteristic of fluid present independently at least every 6 hours, more often as needed. If output is greater than 100 ml in one hour of markel blood call provider. These drains will be removed once the drainage is at a acceptable level (generally less than 100ml in 24 hours) -Pradeep dressing: This will stay in place and will be removed at the patients follow up visit. Nursing is to assess the seal and power source. The seal should be intact and the power source should have a green flashing light indicating it is functioning well. Batteries can last up to 14 days. If a leak develops the dressing edges can be reinforced with a Tegaderm dressing to reestablish intact seal. The Pradeep dressing is NOT a wound vac. This does not get changed, it does not need home health management. -Record output independently, drain 1. Is a deep drain and drain 2. Is a superficial drain. EVERY 6 HOURS- DOCUMENT FINDING IN CHART. If there is no output indicate this by putting 0 ml output Wound drainage is described by type, color, amount, and odor. Drainage can be 1 Serous: Clear and thin, may be present in healing healthy wound. 2 Serosanguineous containing blood may also be present and healthy healing wound 3. Sanguinous primarily blood 4. Purulent this is thick, white, and pus like. It may be indicated to give of a infection and should constitute a call to the provider immediately with the plan that the sample should be cultured. -Luevano: discontinued in OR -Dressings Take care not to disrupt the PRADEEP dressing seal. If there is a break in the seal it can be trouble shot with a Tegaderm dressing. -Dressing to Hemovac drains may be changed once the drains have been removed by the provider. -Bowel management: -Colace 100mg bid -Diet: -Clear liquid diet and advance as patient tolerates within dietary limitations ( example: diabetic, Cardiac) -Incentive Spirometer: -10 x hour while awake, RN please educate and observe repeat demonstration, have IS at bedside POD #1 -X-rays: - none indicated at this time -Consults: -Physical Therapy evaluation, treatment recommendations, and discharge recommendations Call with questions Darshan Hernandez [facility] Orthopaedic Spine Surgery nurse practitioner For Dr Lexi Pool Patient was examined, chart reviewed, labs evaluated, and diagnostic studies and findings analyzed. Case was discussed with Dr. George Pool who formulated the plan of care. This medical document was created using an electronic medical record system with [employer] dictation system. Although this document has been carefully reviewed, there might still be some phonetic and typographical errors. These areas are purely typographical due to imperfections of the software programs, and do not reflect any compromise in the patient's medical care. Plan discussed with Plan discussed with: Patient, Other Visit Coding Surgery Date of Service if different f: Jul 14, 2024 Billing Provider: INDIRA HERNANDEZ NP Surgery Visit Codes: NOT BILLABLE INDIRA HERNANDEZ NP Jul 14, 2024 12:05
--- NOTE | 2024-07-14 17:19 | DVHPN2 ---
Subjective Patient is complaining of minimal neck pain Reviewed: Care Plan Changes from previous H/P or p: No Changes Objective Vitals Vital Signs Date Time Temp Pulse Resp B/P (MAP) Pulse Ox O2 Delivery O2 Flow Rate FiO2 07/14/24 15:22 90 18 121/81 07/14/24 13:00 99.5 94 99.5 07/14/24 08:05 Room Air* 0 N/A Nasal Cannula* Bi-Pap+ Intake/Output Intake and Output 07/14/24 07:00 Intake Total 2750 ml Output Total 695 ml Balance 2055 ml Intake Oral 600 ml IV Total 2150 ml Output Urine Total 400 ml Drainage Total 295 ml # Voids 3 Exam HEENT pupils are reactive Neck is supple CV is S1-S2 regular rate and rhythm Respiratory bilateral clear GI positive bowel sound 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 Medications Current Medications Medications Dose Ordered Sig/Ozzy Route Start Time Stop Time Status Last Admin Dose Admin Ondansetron HCl 4 mg Q4HP PRN IV 07/12/24 15:15 Acetaminophen 650 mg Q6HP PRN PO 07/12/24 15:15 07/13/24 00:37 650 MG Cyclobenzaprine HCl 10 mg TID PO 07/12/24 22:00 07/14/24 13:21 10 MG Docusate Sodium 100 mg BID PO 07/12/24 22:00 07/14/24 10:42 100 MG Nitroglycerin 0.4 mg Q5MINP PRN SL 07/12/24 15:15 Morphine Sulfate 2 mg Q30M PRN IV 07/12/24 15:15 Throat Lozenges 1 piter Q2HP PRN MT 07/12/24 15:15 Acetaminophen/ Hydrocodone Bitart 1 tab Q4HPRN PRN PO 07/12/24 15:30 07/13/24 20:43 1 TAB Morphine Sulfate 2 mg Q4HP PRN IV 07/12/24 15:17 07/14/24 15:22 2 MG Assessment/Plan Assessment/Plan 54-year-old female with a known history of hypertension, dyslipidemia, hypothyroidism, chronic back pain who initially presented to the surgery for elective procedure for lumbar radiculopathy. 1. Relative hypotension with a history of hypertension, hold beta elliot for now 2. Dyslipidemia 3. Hypothyroidism 4. Lumbar radiculopathy status post L4-5 lumbar fusion surgery -continue pain meds as needed, discharge plan per orthopedic spine surgery. Plan discussed with: Patient, Daughter Date of Service: Jul 14, 2024 Billing Provider: ADRIAN DANIEL MD Common Visit Codes: NOT BILLABLE ADRIAN DANIEL MD Jul 14, 2024 17:19
[2024-07-15 00:52] VITALS: BP 127/64; PULSE 94; RESP 20; TEMP 98.7; O2SAT 92
[2024-07-15 05:00] VITALS: BP 118/72; PULSE 91; RESP 20; TEMP 98.3; O2SAT 94
[2024-07-15 07:12] VITALS: O2SAT 96
[2024-07-15 08:00] VITALS: BP 125/77; PULSE 83; RESP 18; TEMP 97.7; O2SAT 96
[2024-07-15 13:00] VITALS: BP 128/86; PULSE 103; RESP 18; TEMP 98; O2SAT 95
--- NOTE | 2024-07-15 16:12 | DVHPN2 ---
Subjective Patient is complaining of minimal neck pain, otherwise denies any other issues. 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 Medications Current Medications Medications Dose Ordered Sig/Ozzy Route Start Time Stop Time Status Last Admin Dose Admin Ondansetron HCl 4 mg Q4HP PRN IV 07/12/24 15:15 Acetaminophen 650 mg Q6HP PRN PO 07/12/24 15:15 07/13/24 00:37 650 MG Cyclobenzaprine HCl 10 mg TID PO 07/12/24 22:00 07/15/24 14:13 10 MG Docusate Sodium 100 mg BID PO 07/12/24 22:00 07/15/24 10:15 100 MG Nitroglycerin 0.4 mg Q5MINP PRN SL 07/12/24 15:15 Morphine Sulfate 2 mg Q30M PRN IV 07/12/24 15:15 Throat Lozenges 1 piter Q2HP PRN MT 07/12/24 15:15 Acetaminophen/ Hydrocodone Bitart 1 tab Q4HPRN PRN PO 07/12/24 15:30 07/15/24 12:28 1 TAB Morphine Sulfate 2 mg Q4HP PRN IV 07/12/24 15:17 07/15/24 15:11 2 MG Assessment/Plan Assessment/Plan 54-year-old female with a known history of hypertension, dyslipidemia, hypothyroidism, chronic back pain who initially presented to the surgery for elective procedure for lumbar radiculopathy. 1. Relative hypotension with a history of hypertension, hold beta elliot for now 2. Dyslipidemia 3. Hypothyroidism 4. Lumbar radiculopathy status post L4-5 lumbar fusion surgery -continue pain meds as needed, discharge plan per orthopedic spine surgery. -plan of care discussed with the patient and patient's family member at bedside they understand verbalized understanding and agreeable to plan. Plan discussed with: Patient, Daughter Date of Service: Jul 15, 2024 Billing Provider: ADRIAN DANIEL MD Common Visit Codes: NOT BILLABLE ADRIAN DANIEL MD Jul 15, 2024 16:12
[2024-07-15 16:40] VITALS: BP 111/72; PULSE 91; RESP 18; TEMP 97.8; O2SAT 91
[2024-07-15] MEDS ORDERED: DOCU-265 PO (17:20)
[2024-07-15] MEDS ORDERED: CYCL-611 PO (17:20)
[2024-07-15] MEDS ORDERED: HYDR-4798 PO (17:20)
--- NOTE | 2024-07-15 17:23 | DVHDS2 ---
ASSESSMENT ASSESSMENT Hospital Course The patient was admitted to the hospital for elective spine surgery with Dr Zohaib Pool. The surgery was uneventful and the patient was recovered in the PACU without event During the post operative phase the patient was admitted for post operative pain control, PT and post operative nursing care. The patient progressed well and was able to be transitioned from IV pain meds to oral only medications with muscle relaxer. The patient progressed with PT and his drain output diminished and the drains were pulled without event. The patient has progressed to discharge and after a final PT session, it was deemed suitable for discharge home. 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
--- NOTE | 2024-07-15 17:24 | DVHDS2 ---
Discharge Summary Date of Admission Jul 12, 2024 at 15:09 Date of Discharge: Jul 15, 2024 Admitting Diagnosis Lumbar Degenerative Disk Disease and Lumbar Spinal Stenosis causing Incapacitating back pain, radiculopathy and progressive neurologic deficit Wounds: posterior lumbar surgical site Brief Hx & Hospital Course: The patient was admitted to the hospital for elective spine surgery with Dr Zohaib Pool. The surgery was uneventful and the patient was recovered in the PACU without event During the post operative phase the patient was admitted for post operative pain control, PT and post operative nursing care. The patient progressed well and was able to be transitioned from IV pain meds to oral only medications with muscle relaxer. The patient progressed with PT and his drain output diminished and the drains were pulled without event. The patient has progressed to discharge and after a final PT session, it was deemed suitable for discharge home. Patient may shower, avoid getting PRADEEP dressing wet. seal the power source in a ziplock bag and tape the seal closed The drain sites may leak over the next 2-3 days, this is normal. The drainage s hould be pink in color. If the drainage is blood red and thick go to the ED. No bending lifting or twisting this may cause muscle spasms. Take your medications as directed keep you follow up appointment on the date and time it was scheduled You medications are sent to your pharmacy of choice This is a video about your pradeep dressing. [email or web address] Operations or Procedures Procedure: Lumbar 5 laminectomy with Lumbar 5 foraminotomies and facetectomies to decompress central canal and Lumbar 5 nerve roots Lumbar 4 laminectomy with Lumbar 4 foraminotomies and facetectomies to dec ompress central canal and Lumbar 4 nerve roots Lumbar 4 to 5 posterior spinal interbody fusion with PEEK cage / bone graft Lumbar 4 to 5 posterior spinal instrumentation with pedicle screws Condition at Discharge: Good Final Diagnosis/Problems List Lumbar Degenerative Disk Disease and Lumbar Spinal Stenosis causing Incapacitating back pain, radiculopathy and progressive neurologic deficit post operative pain related to spine surgery Problems List: (1) Muscle spasm of back Status: Acute (2) Postoperative pain after spinal surgery Status: Acute (3) 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 seal the power source in a ziplock bag and tape the seal closed The drain sites may leak over the next 2-3 days, this is normal. The drainage should be pink in color. If the drainage is blood red and thick go to the ED. No bending lifting or twisting this may cause muscle spasms. Take your medications as directed Follow Up/Referral: keep you follow up appointment on the date and time it was scheduled Medications: You medications are sent to your pharmacy of choice New Medications: Cyclobenzaprine HCl (Cyclobenzaprine Hydrochlo) 10 Mg Tab 10 MG PO TID for 30 Days, #90 TAB Docusate Sodium (Docusate Sodium) 100 Mg Cap 100 MG PO BID for 30 Days, #60 CAP Hydrocodone-Acetaminophen (Hydrocodone Bitartrate/AC 10-325 mg) 1 Tab Tab 1 TAB PO Q6HPRN PRN for 14 Days, #56 TAB Continued Medications: Atenolol (Atenolol) 50 Mg Tab 50 MG PO DAILY for 30 Days, MG Fenofibrate (Fenofibrate) 145 Mg Tab 145 MG OR DAILY, TAB Hydrochlorothiazide (Hydrochlorothiazide) 25 Mg Tab 25 MG PO DAILY for 30 Days, MG Levothyroxine Sodium (Levothyroxine Sodium) 25 Mcg Tab 25 MCG PO QAM, MCG Meloxicam (Meloxicam) 15 Mg Tab 15 MG PO, TAB Tirzepatide (Zepbound) 5 Mg/0.5 Ml Inj 5 MG SC QWEEKLY, INJ Venlafaxine Hcl (Venlafaxine Hcl Er) 37.5 Mg Cap 37.5 MG PO QPM, CAP Discharge Statement: "Patient was advised to return to the ER or call 911 if any headaches, dizziness, shortness of breath, chest pain, abdominal pain, bleeding, fevers, or worsening of medical condition. Patient was counseled about treatment plan, medications, possible side effects, patientverbalized understanding. All questions were answered to the best of my ability. This discharge took greater then 30 minutes in planning, reviewing documentation, counseling the patient, and discussing with other team members." ASSESSMENT ASSESSMENT Hospital Course The patient was admitted to the hospital for elective spine surgery with Dr Zohaib Pool. The surgery was uneventful and the patient was recovered in the PACU without event During the post operative phase the patient was admitted for post operative pain control, PT and post operative nursing care. The patient progressed well and was able to be transitioned from IV pain meds to oral only medications with muscle relaxer. The patient progressed with PT and his drain output diminished and the drains were pulled without event. The patient has progressed to discharge and after a final PT session, it was deemed suitable for discharge home. 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
== END 2024-07-15 18:37 | disposition home or self-care (01) | DRG 402 ==
LOC: SUR 08:13 → OVERFLOW 15:09 → WEST WING 16:18
PROVIDERS: ADMIT Internal Medicine; ATTEND Internal Medicine
PROC: 01NB0ZZ Release Lumbar Nerve, Open Approach (ICD-10-PCS; 2024-07-12)
PROC: 00NY0ZZ Release Lumbar Spinal Cord, Open Approach (ICD-10-PCS; 2024-07-12)
PROC: 4A11X4G Monitoring of Peripheral Nervous Electrical Activity, Intraoperative, External Approach (ICD-10-PCS; 2024-07-12)
PROC: 0SG00K1 Fusion of Lumbar Vertebral Joint with Nonautologous Tissue Substitute, Posterior Approach, Posterior Column, Open Approach (ICD-10-PCS; 2024-07-12)
PROC: 5A09357 Assistance with Respiratory Ventilation, Less than 24 Consecutive Hours, Continuous Positive Airway Pressure (ICD-10-PCS; 2024-07-12)
PROC: 0SG00AJ Fusion of Lumbar Vertebral Joint with Interbody Fusion Device, Posterior Approach, Anterior Column, Open Approach (ICD-10-PCS; principal; 2024-07-12 11:46)
DX: M48.062 Spinal stenosis, lumbar region with neurogenic claudication (principal); E03.9 Hypothyroidism, unspecified; E78.5 Hyperlipidemia, unspecified; G89.18 Other acute postprocedural pain; I10 Essential (primary) hypertension; K59.9 Functional intestinal disorder, unspecified; M51.16 Intervertebral disc disorders with radiculopathy, lumbar region; T40.605A Adverse effect of unspecified narcotics, initial encounter; Y92.89 Other specified places as the place of occurrence of the external cause; Z79.899 Other long term (current) drug therapy
CPT/HCPCS: 72100; 76000; 86850; 86900; 86901; 94660; 97110; 97116; 97163; 97530; G0378; J0131; J1100; J2250; J2405; J2704